=== PATIENT | female | born 1965 | race Caucasian/White ===

== ENCOUNTER → 2016-04-13 | Outpatient (CLI) | payer OTHER ==
[~2016-04-13] VITALS: Ht 160 cm; Wt 64.5 kg
[~2016-04-13] MED LIST: ERYTHROMYC1 APPLICAT RIGHT EYE; ~No Medications
[2016-04-13 08:41] VITALS: BP 116/72
== END | disposition home or self-care (01) ==
LOC: IVINF 08:25
PROVIDERS: Internal Medicine Endocrinology, Diabetes & Metabolism
DX: R53.83 Other fatigue (principal)
CPT/HCPCS: 80400; 82024 90; 82533 91; 96374; J0834

== ENCOUNTER 2017-05-27 04:37 | Emergency (ER) | payer OTHER ==
[~2017-05-27] VITALS: Ht 157.5 cm; Wt 68.5 kg
[2017-05-27 04:43] VITALS: BP 131/82
[2017-05-27 05:25] LABS: HEMATOCRIT 42.6 % (36.0-46.0); MCH 27.9 PG (29.0-34.0); MCHC 32.9 G/DL (30.0-36.0); MCV 84.9 FL (83-99); RBC DIS.WIDTH-CV 13.3 % (11.8-14.6); RBC DIS.WIDTH-SD 41.5 % (39-53); RED BLOOD COUNT 5.02 M/uL (3.80-5.20); WHITE BLOOD COUNT 7.3 K/uL (4.1-10.2)
[2017-05-27 05:46] LABS: TROP-I INTERPRETATION NEGATIVE; TROPONIN-I < 0.01 ng/mL (0.0-0.30)
[2017-05-27 06:01] LABS: CHLORIDE 105 mEq/L (99-109); POTASSIUM 4.2 mEq/L (3.7-5.4); SODIUM 140 mEq/L (136-147)
[2017-05-27 06:03] LABS: GLUCOSE 105 mg/dL (70-99)
[2017-05-27 06:07] LABS: CREATININE 0.8 mg/dL (0.6-1.3); GFR ESTIMATE (CALCULATED) > 59 mL/min/
[2017-05-27 06:08] LABS: UREA NITROGEN (BUN) 18 mg/dL (9-23)
[2017-05-27 06:24] LABS: HEMATOLOGY COMMENT 1 SN; PLAT.SUFFICIENCY ADEQUATE; PLATELET COUNT UNABLE TO REPORT K/uL (156-360)
== END 2017-05-27 10:42 | disposition left against medical advice (07) ==
LOC: EME 04:37
DX: R07.89 Other chest pain (principal); R06.02 Shortness of breath; Z53.21 Procedure and treatment not carried out due to patient leaving prior to being seen by health care provider
CPT/HCPCS: 71046; 80048; 84484; 85027; 93005